=== PATIENT | female | born 1960 | race Two or more races ===

== ENCOUNTER 2021-07-11 12:43 | Inpatient (IN) | payer MEDICAID ==
[~2021-07-11] VITALS: Ht 154.9 cm; Wt 81.9 kg
[2021-07-11] MEDS ORDERED: SODIUM CHLORIDE 0.9% 500 ML IVB ONE (13:30)
[2021-07-11] MEDS ORDERED: SODIUM CHLORIDE 0.9% 1,000 ML IV ONE (13:30)
[2021-07-11 14:21] LABS: Basophils # (auto) 0 10 ^3/uL (0-0.2); Basophils % (auto) 0.4 % (0.0-2.0); Eosinophils # (auto) 0 10 ^3/uL (0-0.8); Eosinophils % (auto) 0.4 % (0.0-7.0); Hematocrit 42.2 % (36.0-46.0); Hemoglobin 14.7 g/dL (12.2-16.2); Lymphocytes % (auto) 21.1 % (10.0-50.0); Mean Corpuscular Hemoglobin 32.8 pg (28.0-32.0); Mean Corpuscular Hgb Conc. 34.8 g/dL (32.0-36.0); Monocytes # (auto) 0.5 10 ^3/uL (0-1.3); Monocytes % (auto) 5.6 % (0.0-12.0); Neutrophils % (auto) 72.5 % (37.0-80.0); Nucleated Red Blood Cells % 0.1 %; Red Blood Cells 4.48 10^6/uL (4.0-5.20); Red Cell Distribution Width 13.2 % (11.8-14.3); White Blood Cell 9.7 10^3/uL (4.4-10.8)
[2021-07-11 14:37] LABS: Albumin 3.6 g/dL (3.4-5.0); Calcium 9.1 mg/dL (8.5-10.1); Magnesium 2.5 mg/dL (1.6-2.6); Potassium 3.6 mmol/L (3.5-5.1)
[2021-07-11 14:40] LABS: BUN/Creatinine Ratio 13.4; Bilirubin, Total 1.1 mg/dL (0.2-1.0); Total Protein 8.4 g/dL (6.4-8.2)
[2021-07-11] MEDS ORDERED: metroNIDAZOLE 500MG/100ML 100 ML IV ONE ×2 (15:15→20:15)
[2021-07-11] MEDS ORDERED: cefTRIAXone 1GM/50ML D5W 50 ML IV ONE (15:15)
[2021-07-11] MEDS ORDERED: NITROGLYCERIN 0.4 MG SL TAB SL PRN ×2 (15:30→20:15)
[2021-07-11] MEDS ORDERED: MORPHINE SULFATE INJECTION 2 MG/ML SYRG IV PRN ×4 (15:30→20:15)
[2021-07-11] MEDS ORDERED: ONDANSETRON HCL 4 MG/2 ML VIAL IV PRN ×2 (17:30→20:15)
[2021-07-11] MEDS ORDERED: LACTATED RINGER'S 1,000 ML IV ONE (17:30)
[2021-07-11] MEDS: SODIUM CHLORIDE 0.9% 1,000 ML IV SCH (18:22)
[2021-07-11] MEDS ORDERED: HYDROcodone-ACET 5/325MG TAB PO PRN (20:15)
[2021-07-11] MEDS ORDERED: DOCUSATE SOD 100 MG CAP PO PRN (20:15)
[2021-07-11] MEDS ORDERED: ALUM & MAG HYDROX-SIMETH LIQ(MAALOX) 30 ML PO PRN (20:15)
[2021-07-11] MEDS ORDERED: ACETAMINOPHEN 325 MG TAB PO PRN (20:15)
[2021-07-11] MEDS ORDERED: LORazepam 0.5 MG TAB PO PRN (20:15)
[2021-07-11 20:59] LABS: Urine Bacteria NONE SEEN /hpf (None Seen); Urine Blood Negative /uL (Negative); Urine Mucus FEW (None Seen); Urine Specific Gravity 1.016 (1.001-1.035); Urine WBC 1 /hpf (0 - 5)
[2021-07-11 21:58] LABS: Alcohol, Urine < 3.0 mg/dL (0-10); Amphetamine Screen, Urine NEGATIVE (NEGATIVE); Barbiturate Scree,Urine NEGATIVE (NEGATIVE); Benzodiazephine Screen, Urine NEGATIVE (NEGATIVE); Cannabinoid Screen, Urine NEGATIVE (NEGATIVE); Cocaine Screen, Urine NEGATIVE (NEGATIVE); Opiate Scree,Urine NEGATIVE (NEGATIVE); Phencyclidine Screen, Urine NEGATIVE (NEGATIVE)
[2021-07-11 22:50] VITALS: BP 115/72
[2021-07-11] MEDS: metroNIDAZOLE 500MG/100ML 100 ML IV SCH (23:37)
[2021-07-11] MEDS: ATORVASTATIN 20 MG TAB PO SCH (23:37)
[2021-07-12 05:00] VITALS: BP 124/73
[2021-07-12] MEDS: metroNIDAZOLE 500MG/100ML 100 ML IV SCH (06:10)
[2021-07-12 09:00] VITALS: BP 118/67
[2021-07-12] MEDS ORDERED: cefTRIAXone 1GM/50ML D5W 50 ML IV SCH (09:00)
[2021-07-12 09:10] LABS: Basophils # (auto) 0 10 ^3/uL (0-0.2); Basophils % (auto) 0.3 % (0.0-2.0); Eosinophils # (auto) 0 10 ^3/uL (0-0.8); Eosinophils % (auto) 0.6 % (0.0-7.0); Hematocrit 38.3 % (36.0-46.0); Hemoglobin 13.7 g/dL (12.2-16.2); Lymphocytes # (auto) 1.7 10 ^3/uL (0.4-5.4); Lymphocytes % (auto) 20.2 % (10.0-50.0); Mean Corpuscular Hemoglobin 33.6 pg (28.0-32.0); Mean Corpuscular Hgb Conc. 35.7 g/dL (32.0-36.0); Monocytes # (auto) 0.3 10 ^3/uL (0-1.3); Monocytes % (auto) 3.2 % (0.0-12.0); Neutrophils # (auto) 6.3 10 ^3/uL (1.6-8.6); Neutrophils % (auto) 75.7 % (37.0-80.0); Red Blood Cells 4.07 10^6/uL (4.0-5.20); Red Cell Distribution Width 12.5 % (11.8-14.3); White Blood Cell 8.4 10^3/uL (4.4-10.8)
[2021-07-12 09:18] LABS: Anion Gap 8 (5-15); Blood Urea Nitrogen 7 mg/dL (7-18); Calcium 8.2 mg/dL (8.5-10.1); Carbon Dioxide 22 mmol/L (21-32); Chloride 107 mmol/L (98-107); Potassium 3.4 mmol/L (3.5-5.1); Sodium 137 mmol/L (136-145)
[2021-07-12 09:21] LABS: INR 1.07 (0.9-1.15); Partial Thromboplastin Time 33.3 sec (23.6-33.0)
[2021-07-12] MEDS: ASPirin 81 mg TAB PO SCH (09:21)
[2021-07-12] MEDS: ENOXAPARIN SOD 40 MG/0.4 ML SYRINGE SC SCH (09:21)
[2021-07-12 09:26] LABS: Alanine Aminotransferase 27 U/L (13-56); Alkaline Phosphatase 75 U/L (45-117); Aspartate Aminotransferase 17 U/L (15-37); BUN/Creatinine Ratio 12.1; GFR African American 135 mL/min; GFR Non-African American 112 mL/min; Glucose 136 mg/dL (74-106); Magnesium 2.4 mg/dL (1.6-2.6); Phosphorus 2.1 mg/dL (2.5-4.90); Total Protein 7.4 g/dL (6.4-8.2)
[2021-07-12] MEDS: SODIUM CHLORIDE 0.9% 1,000 ML IV SCH ×2 (10:36→21:09)
[2021-07-12] MEDS: PIPERACILLIN-TAZOB 3.375GM 100 ML IV SCH ×3 (11:18→23:04)
[2021-07-12 13:10] VITALS: BP 134/76
[2021-07-12 16:32] VITALS: BP 124/68
[2021-07-12] MEDS: ATORVASTATIN 20 MG TAB PO SCH (21:05)
[2021-07-12 22:00] VITALS: BP 138/75
[2021-07-13 05:00] VITALS: BP 137/77
[2021-07-13] MEDS: PIPERACILLIN-TAZOB 3.375GM 100 ML IV SCH ×2 (05:35→12:01)
[2021-07-13 09:00] VITALS: BP 147/82
[2021-07-13] MEDS: ASPirin 81 mg TAB PO SCH (09:30)
[2021-07-13] MEDS: ENOXAPARIN SOD 40 MG/0.4 ML SYRINGE SC SCH (09:31)
[2021-07-13] MEDS ORDERED: METR500T PO (13:44)
[2021-07-13] MEDS ORDERED: ONDA-144 PO (13:44)
[2021-07-13] MEDS ORDERED: LEVO-28 PO (13:44)
== END 2021-07-13 17:30 | disposition home or self-care (01) | DRG 244 ==
LOC: ER 12:43 → OVERFLOW 15:31 → CENTRAL 22:06
PROVIDERS: ADMIT Hospitalist; ATTEND Internal Medicine
DX: K57.32 Diverticulitis of large intestine without perforation or abscess without bleeding (principal); K76.0 Fatty (change of) liver, not elsewhere classified; E66.01 Morbid (severe) obesity due to excess calories; E78.5 Hyperlipidemia, unspecified; N39.0 Urinary tract infection, site not specified; Z88.2 Allergy status to sulfonamides; Z68.34 Body mass index [BMI] 34.0-34.9, adult; Z83.3 Family history of diabetes mellitus; Z90.49 Acquired absence of other specified parts of digestive tract
CPT/HCPCS: 36415; 71046; 74176; 76705; 80053; 80307; 81001; 83036; 83690; 83735; 83880; 84100; 84443; 84484; 85025; 85610; 85730; 87040; 87086; 87426; 96365; 96366; 96367; 96375; G0378; J0696; J2543; J3490